=== PATIENT | female | born 1945 | race Asian ===

== ENCOUNTER → 2017-12-18 | Outpatient (CLI) | payer MEDICARE ==
[~2017-12-18] MED LIST: ALEN70TA5 PO; ASPI-515 PO; GLIP5TAB10 PO; LEVO125T5 PO; METF500T4 PO
== END | disposition home or self-care (01) ==
LOC: CFH 09:03
PROVIDERS: ATTEND Physician Assistant Medical
DX: Z12.31 Encounter for screening mammogram for malignant neoplasm of breast (principal)
CPT/HCPCS: 77067

== ENCOUNTER → 2019-03-14 | Outpatient (CLI) | payer MEDICARE ==
[~2019-03-14] MED LIST changes: -ALEN70TA5 PO; +ALEN70TA6 PO; +METF500T17 PO; -METF500T4 PO
== END | disposition home or self-care (01) ==
LOC: CFH 10:07
PROVIDERS: ATTEND Family Medicine
DX: Z12.31 Encounter for screening mammogram for malignant neoplasm of breast (principal); N63.10 Unspecified lump in the right breast, unspecified quadrant
CPT/HCPCS: 77067

== ENCOUNTER → 2019-04-19 | Outpatient (CLI) | payer MEDICARE | END | disposition home or self-care (01) | LOC: CFH 08:34 | PROVIDERS: ATTEND Internal Medicine Gastroenterology | DX: R10.11 Right upper quadrant pain (principal); R10.31 Right lower quadrant pain | CPT/HCPCS: 74021 ==

== ENCOUNTER 2020-05-15 23:27 | Observation (INO) | payer MEDICARE ==
[~2020-05-15] VITALS: Ht 154.9 cm; Wt 53.8 kg
[2020-05-15 23:59] LABS: BASOPHILS # (AUTO) 0.03 x10^3/uL (0-0.1); BASOPHILS % (AUTO) 1 % (0-1); EOSINOPHILS # (AUTO) 0.11 x10^3/uL (0-0.4); EOSINOPHILS % (AUTO) 2 % (1-7); LYMPHOCYTES # (AUTO) 0.83 x10^3/uL (1-3.4); LYMPHOCYTES % (AUTO) 14 % (22-44); MD NO; MEAN CORPUSCULAR HEMOGLOBIN 26.2 pg (27.0-34.8); MEAN CORPUSCULAR HGB CONC 32.9 g/dL (32.4-35.8); MEAN PLATELET VOLUME 7.6 fL (7.4-10.4); MONOCYTES # (AUTO) 0.32 x10^3/uL (0.2-0.8); MONOCYTES % (AUTO) 6 % (2-9); NEUTROPHILS # (AUTO) 4.62 x10^3/uL (1.8-6.8); NEUTROPHILS % (AUTO) 78 % (42-75); PLATELET COUNT 419 x10^3/uL (130-400); RED BLOOD COUNT 4.62 x10^6/uL (3.82-5.3)
[2020-05-16] MEDS ORDERED: SODIUM CHLORIDE 0.9% 1,000ML IVBOLUS ONE
[2020-05-16] MEDS ORDERED: SODIUM CHLORIDE FLUSH 10ML SYR IVF ONE
[2020-05-16 00:12] LABS: ALANINE AMINOTRANSFERASE 21 U/L (12-78); ALBUMIN 3.5 g/dL (3.4-5.0); ANION GAP 10 mmol/L (5-15); CALCIUM 8.7 mg/dL (8.5-10.1); CHLORIDE 86 mmol/L (98-107); CREATININE 0.71 mg/dL (0.55-1.02)
[2020-05-16 00:17] LABS: ALKALINE PHOSPHATASE 58 U/L (45-117); BILIRUBIN,TOTAL 0.4 mg/dL (0.2-1.0); TOTAL PROTEIN 7.6 g/dL (6.4-8.2); TROPONIN I < 0.015 ng/mL (0.000-0.045)
[2020-05-16] MEDS ORDERED: ONDANSETRON 2MG/ML, 2ML ONE (00:24)
[2020-05-16] MEDS ORDERED: POTASSIUM CHLORIDE 20 MEQ TAB.ER.PRT PO ONE (00:30)
[2020-05-16] MEDS ORDERED: ONDANSETRON 2MG/ML, 2ML IVPush PRN ×2 (00:30→01:00)
[2020-05-16] MEDS ORDERED: SODIUM CHLORIDE 0.9% 1,000 ML IV SCH (00:52)
[2020-05-16] MEDS ORDERED: hydrALAzine 20 MG/ML, 1ML IVPush PRN (01:00)
[2020-05-16] MEDS ORDERED: DOCUSATE 100 MG CAPSULE PO PRN (01:00)
[2020-05-16] MEDS ORDERED: PROMETHAZINE 25 MG/ML, 1ML IM PRN (01:00)
[2020-05-16] MEDS ORDERED: BISACODYL 10 MG SUPP PR PRN (01:00)
[2020-05-16] MEDS ORDERED: ACETAMINOPHEN 325 MG TABLET PO PRN (01:00)
[2020-05-16] MEDS ORDERED: ONDANSETRON ODT 4 MG PO PRN (01:00)
[2020-05-16] MEDS ORDERED: POLYETHYLENE GLYCOL 17 GM PACKET PO PRN (01:00)
[2020-05-16 01:35] LABS: MICROSCOPIC AUTO
[2020-05-16 01:38] LABS: FREE T4 (FREE THYROXINE) 1.25 ng/dL (0.76-1.46)
[2020-05-16 01:50] VITALS: BP 157/89
[2020-05-16] MEDS: LOSARTAN 25MG TABLET PO SCH ×2 (02:22→09:06)
[2020-05-16] MEDS: ENOXAPARIN 40 MG/0.4 ML SQ SCH (02:23)
[2020-05-16 04:45] LABS: SODIUM,URINE RANDOM 45 mmol/L
[2020-05-16 05:23] LABS: OSMOLALITY,URINE 133 mOsm/kg (500-850)
[2020-05-16] MEDS: INSULIN LISPRO 100 UNITS/ML, PEN SQ-INSULIN SCH ×4 (07:00→21:00)
[2020-05-16 08:12] VITALS: BP 161/75
[2020-05-16] MEDS: LEVOTHYROXINE 125 MCG TABLET PO SCH (09:05)
[2020-05-16 11:14] LABS: ANION GAP 6 mmol/L (5-15); CALCIUM 8.7 mg/dL (8.5-10.1); CHLORIDE 96 mmol/L (98-107); CREATININE 0.69 mg/dL (0.55-1.02)
[2020-05-16 12:49] VITALS: BP 115/46
[2020-05-16 17:43] LABS: ANION GAP 6 mmol/L (5-15); CALCIUM 9.3 mg/dL (8.5-10.1); CHLORIDE 99 mmol/L (98-107); CREATININE 0.69 mg/dL (0.55-1.02)
[2020-05-16 19:40] VITALS: BP 144/71
[2020-05-17 00:44] VITALS: BP 132/74
[2020-05-17] MEDS: ENOXAPARIN 40 MG/0.4 ML SQ SCH (01:34)
[2020-05-17 05:48] LABS: BASOPHILS # (AUTO) 0.03 x10^3/uL (0-0.1); BASOPHILS % (AUTO) 1 % (0-1); EOSINOPHILS # (AUTO) 0.07 x10^3/uL (0-0.4); EOSINOPHILS % (AUTO) 2 % (1-7); LYMPHOCYTES # (AUTO) 0.95 x10^3/uL (1-3.4); LYMPHOCYTES % (AUTO) 22 % (22-44); MD NO; MEAN CORPUSCULAR HGB CONC 32.6 g/dL (32.4-35.8); MEAN PLATELET VOLUME 7.9 fL (7.4-10.4); MONOCYTES # (AUTO) 0.26 x10^3/uL (0.2-0.8); MONOCYTES % (AUTO) 6 % (2-9); NEUTROPHILS # (AUTO) 2.97 x10^3/uL (1.8-6.8); NEUTROPHILS % (AUTO) 70 % (42-75); PLATELET COUNT 380 x10^3/uL (130-400); RED BLOOD COUNT 4.47 x10^6/uL (3.82-5.3); RED CELL DISTRIBUTION WIDTH 15.2 % (9.6-15.2)
[2020-05-17 05:49] LABS: ANION GAP 7 mmol/L (5-15); CALCIUM 9.3 mg/dL (8.5-10.1); CHLORIDE 103 mmol/L (98-107); CHOLESTEROL, TOTAL 146 mg/dL (140-239); CREATININE 0.62 mg/dL (0.55-1.02); TRIGLYCERIDES 109 mg/dL (50-200); VLDL CHOLESTEROL 22 mg/dL (0-25)
[2020-05-17 05:52] LABS: CHOL/HDL RATIO 3.7; HDL CHOL % 27 % (28-40); HDL CHOLESTEROL (DIRECT) 39 mg/dL (40-60); LDL CHOLESTEROL,CALCULATED 85 mg/dL (54-169); LDL/HDL RATIO 2.2 (0.5-3.0)
[2020-05-17] MEDS: INSULIN LISPRO 100 UNITS/ML, PEN SQ-INSULIN SCH ×2 (07:00→11:00)
[2020-05-17 07:51] VITALS: BP 150/70
[2020-05-17] MEDS: LEVOTHYROXINE 125 MCG TABLET PO SCH (08:04)
[2020-05-17] MEDS ORDERED: LOSARTAN 50MG TABLET PO SCH (09:00)
[2020-05-17] MEDS ORDERED: DOXY100T PO (09:55)
[2020-05-17] MEDS ORDERED: LOSA50TA2 PO (09:55)
[2020-05-18] MEDS ORDERED: ASPIRIN 81 MG TABLET EC PO SCH (09:00)
== END 2020-05-17 12:18 | disposition home or self-care (01) ==
LOC: ED 05-16 00:14 → EDIP 05-16 00:27 → UNDOADMIN 05-16 00:27 → INTOOBSV 05-16 00:52 → EDIP 05-16 00:52 → 3N 05-16 01:42 → DCLOUNGE 05-17 12:12
PROVIDERS: ADMIT Internal Medicine; ATTEND Hospitalist
DX: E87.1 Hypo-osmolality and hyponatremia (principal); I10 Essential (primary) hypertension; E11.65 Type 2 diabetes mellitus with hyperglycemia; E87.6 Hypokalemia; E03.9 Hypothyroidism, unspecified; M81.0 Age-related osteoporosis without current pathological fracture; E78.00 Pure hypercholesterolemia, unspecified; J18.9 Pneumonia, unspecified organism; D75.89 Other specified diseases of blood and blood-forming organs; Z79.899 Other long term (current) drug therapy
CPT/HCPCS: 36415; 70450; 71045; 80048; 80053; 80061; 81001; 82306; 82607; 82728; 82962; 83036; 83540; 83550; 83735; 83930; 83935; 84300; 84439; 84443; 84466; 84484; 85025; 93005; 96361; 96372; 96374; 97161; 99285; G0378; J1650; J1815; J2405; J7030

== ENCOUNTER 2021-01-20 10:15 | Emergency (ER) | payer MEDICAID, MEDICARE ==
[~2021-01-20] VITALS: Ht 152.4 cm; Wt 48.9 kg
[~2021-01-20 10:15] MED LIST changes: -ALEN70TA6 PO; +ALEN70TA77 PO; -ASPI-515 PO; +ASPI-963 PO; +DOXY100T PO; +LOSA50TA2 PO
--- NOTE | 2021-01-20 10:23 | NUR ---
EKG IN TRIAGE
[2021-01-20] MEDS ORDERED: MECLIZINE CHEWABLE 25 MG TAB PO ONE (11:30)
[2021-01-20] MEDS ORDERED: MECLIZINE CHEWABLE 25 MG TAB ONE (11:39)
[2021-01-20 11:51] LABS: BASOPHILS % (AUTO) 1 % (0-1); EOSINOPHILS % (AUTO) 1 % (1-7); LYMPHOCYTES % (AUTO) 15 % (22-44); MEAN CORPUSCULAR HEMOGLOBIN 26.2 pg (27.0-34.8); MEAN CORPUSCULAR HGB CONC 32.6 g/dL (32.4-35.8); MEAN PLATELET VOLUME 8.4 fL (7.4-10.4); MONOCYTES % (AUTO) 4 % (2-9); NEUTROPHILS % (AUTO) 80 % (42-75); PLATELET COUNT 386 x10^3/uL (130-400); RED BLOOD COUNT 4.86 x10^6/uL (3.82-5.3); RED CELL DISTRIBUTION WIDTH 14.6 % (9.6-15.2)
[2021-01-20 12:00] LABS: ALBUMIN 3.6 g/dL (3.4-5.0); ANION GAP 7 mmol/L (5-15); CALCIUM 9.7 mg/dL (8.5-10.1); CHLORIDE 105 mmol/L (98-107); CREATININE 0.79 mg/dL (0.55-1.02)
[2021-01-20] MEDS ORDERED: SODIUM CHLORIDE FLUSH 10ML SYR IVF ONE (12:00)
[2021-01-20 12:04] LABS: MD NO; TROPONIN I < 0.015 ng/mL (0.000-0.045)
--- NOTE | 2021-01-20 12:10 | NUR ---
ambulated around room and down hallway after antivert. pt states she still has a hard time seeing out of her eyes with ambulation. pt is steady on feet.
[2021-01-20 12:26] LABS: MICROSCOPIC NOT IND
[2021-01-20 13:34] VITALS: BP 144/72
--- NOTE | 2021-01-20 13:49 | NUR ---
PT AMBULATES TO DISCHARGE DESK. PT GIVEN PHONE FOR MTM CALL WITH INSTRUCTIONS.
== END 2021-01-20 13:50 | disposition home or self-care (01) ==
LOC: ED 10:56
DX: R42 Dizziness and giddiness (principal); I10 Essential (primary) hypertension; E11.9 Type 2 diabetes mellitus without complications; R94.31 Abnormal electrocardiogram [ECG] [EKG]
CPT/HCPCS: 36415; 80048; 81003; 82040; 84484; 85025; 93005; 99284

== ENCOUNTER 2021-07-20 11:33 | Outpatient (CLI) | payer MEDICARE, MEDICAID | END 2021-07-20 23:59 | disposition home or self-care (01) | LOC: CVU 11:33 | PROVIDERS: ATTEND Internal Medicine Cardiovascular Disease | DX: I06.1 Rheumatic aortic insufficiency (principal); I11.9 Hypertensive heart disease without heart failure; E78.5 Hyperlipidemia, unspecified; E11.9 Type 2 diabetes mellitus without complications | CPT/HCPCS: 93306; 93356 ==